=== PATIENT | female | born 1995 | race Two or more races ===

== ENCOUNTER 2020-07-07 15:04 | Emergency (ER) | payer OTHER ==
[~2020-07-07] VITALS: Ht 160 cm; Wt 59.0 kg
== END 2020-07-07 17:24 | disposition home or self-care (01) ==
LOC: ER 15:04
DX: S61.225A Laceration with foreign body of left ring finger without damage to nail, initial encounter (principal); W26.0XXA Contact with knife, initial encounter; Y93.89 Activity, other specified; Y92.511 Restaurant or cafe as the place of occurrence of the external cause; Y99.8 Other external cause status